=== PATIENT | male | born 2000 | race Caucasian/White ===

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

== ENCOUNTER → 2020-06-22 09:46 | Outpatient (CLI) | payer BC, SELFPAY ==
--- NOTE | ~2020-06-22 | US_ITS ---
EXAMINATION: US renal BI DATE: 06/22/2020 10:00 INDICATION: Right ureteral stone TECHNIQUE: Multiple ultrasound grayscale images of the kidneys were obtained. COMPARISON: None. FINDINGS: The right kidney measures 10.6 x 6.1 x 5.5 cm. The left kidney measures 10.7 x 6.9 x 6.2 cm. The kidn eys demonstrate normal echogenicity. There is no hydronephrosis in either kidney. No stones identifi ed. The bladder appears normal but is incompletely distended which limits evaluation. IMPRESSION: 1. Normal kidneys without hydronephrosis. Reviewed, dictated and finalized at location B.
== END ==
PROVIDERS: PCP Pediatrics; Visit Provider Urology
DX: R20.1 Hypoesthesia of skin (principal)
CPT/HCPCS: 76775